=== PATIENT | female | born 1960 | race Caucasian/White ===

== ENCOUNTER 2019-12-08 04:10 | Emergency (ER) | payer MEDICAID ==
[~2019-12-08] VITALS: Ht 162.6 cm; Wt 68.9 kg
--- NOTE | 2019-12-08 04:11 | NUR ---
PT W/C ASSISTED TO ER BED 11
[2019-12-08 04:12] VITALS: BP 106/63
--- NOTE | 2019-12-08 04:15 | NUR ---
59 YO F BIB SELF WITH C/C OF LOWER BACK PAIN 10/15 THAT RADIATES DOWN TO BUTTOCKS AND LEGS, LEFT LEG HURTS MORE THAN RIGHT FOR 1 MONTH. WORSENED ON 12/05. PT DENIES DOING ANYTHING IN SPECIFIC TO CAUSE PAIN. PT STATES PAIN WORSENS DURING ANY TYPE OF MOVEMENT. PT STATES SHE IS UNABLE TO USE THE RR DUE TO INABILITY TO WALK THEREFORE REQUIRES A BEDPAN/ DIAPER. PT STATED HER PRIMARY PROVIDER INJS HER 1 MONTH FOR THE PAIN. INJ RELIEVES PAIN FOR ABOUT 2 DAYS THEN CONT. PT TOOK IBUPROFEN AT 3:30 AM FOR PAIN WITH LITTLE RELIEF. BED LOCKED IN LOWEST POSITION, SIDE RAILS X2 AND HOOKED ON MACHINE ASSISTANT AND PULSE OX. HX: DENIES RX: DENIES NKA
--- NOTE | 2019-12-08 04:27 | NUR ---
Dr. Fu examining patient.
[2019-12-08] MEDS ORDERED: CYCLOBENZAPRINE 10 MG TAB PO ONE (04:30)
[2019-12-08] MEDS ORDERED: KETOROLAC 60 MG/2 ML VIAL IM ONE (04:30)
--- NOTE | 2019-12-08 04:53 | NUR ---
RAD NOTIFIED PT IS READY FOR XRAY.
--- NOTE | 2019-12-08 05:07 | NUR ---
RAD PICKED UP PT FOR XRAY.
--- NOTE | 2019-12-08 05:21 | NUR ---
pt returned from Xray via w/c
--- NOTE | 2019-12-08 05:36 | NUR ---
PT IS RESTING IN BED. BED LOCKED IN LOWEST POSITION, SIDE RAILS X2, ON PULSE OX.
[2019-12-08 06:13] VITALS: BP 93/51
--- NOTE | 2019-12-08 06:13 | NUR ---
Patient discharged with v/s stable. Written and verbal after care instructions given and explained. Patient alert, oriented and verbalized understanding of instructions. Ambulatory with steady gait. All questions addressed prior to discharge. ID band removed. Patient advised to follow up with PMD. Rx of FLEXERIL, TORADOL given. Patient educated on indication of medication including possible reaction and side effects. Opportunity to ask questions provided and answered.
== END 2019-12-08 06:13 | disposition home or self-care (01) ==
LOC: MED 04:10
DX: M54.5 Low back pain (principal); M79.605 Pain in left leg
CPT/HCPCS: 72110; 96372; 99283; J1885

== ENCOUNTER 2021-08-04 14:17 | Emergency (ER) | payer MEDICAID ==
[~2021-08-04] VITALS: Ht 149.9 cm; Wt 68.5 kg
[2021-08-04 14:55] VITALS: BP 126/78
--- NOTE | 2021-08-04 15:58 | NUR ---
GLO Fried at bedside evaluating patient.
--- NOTE | 2021-08-04 16:02 | NUR ---
61 y/o female bib self with c/o right foot pain. Patient denies any injury or trauma. Patient has some swelling to right ankle and foot. Per patient pain started 8 months ago and has gradually gotten worse over time. Current pain level is 9/10. Patient has sensation, movement to bilateral feet. Patient also has strong pedal pulses. Medical History: Denies NKDA
[2021-08-04] MEDS ORDERED: KETOROLAC 30 MG/ML VIAL IM ONE (16:10)
[2021-08-04] MEDS ORDERED: NAPR-1704 PO (16:53)
[2021-08-04] MEDS ORDERED: PRED20TA5 PO (16:53)
[2021-08-04 17:04] VITALS: BP 113/70
--- NOTE | 2021-08-04 17:04 | NUR ---
Patient discharged with v/s stable. Written and verbal after care instructions given. Patient alert, oriented and verbalized understanding of instructions. Ambulatory with steady gait. All questions addressed prior to discharge. ID band removed. Patient advised to follow up with PMD. Rx of naproxen and prednisone given. Opportunity to ask questions provided and answered.
--- NOTE | 2021-08-04 17:05 | NUR ---
Chart checked and completed. The patient's care was reviewed and supervised by Trupti Man RN.
== END 2021-08-04 17:04 | disposition home or self-care (01) ==
LOC: MED 14:17
DX: M76.61 Achilles tendinitis, right leg (principal); Z79.899 Other long term (current) drug therapy
CPT/HCPCS: 73610; 96372; 99283; J1885